=== PATIENT | female | born 1970 | race Caucasian/White ===

== ENCOUNTER 2017-10-20 04:51 | Emergency (ER) | payer MEDICAID ==
[~2017-10-20] VITALS: Ht 152.4 cm; Wt 85.5 kg
[~2017-10-20 04:51] MED LIST: ATOR20TA86 PO; INSLAN SQ; INSU100C3 SQ; SITA50 PO
[2017-10-20] MEDS ORDERED: ATOR40TA28 PO (05:03)
[2017-10-20] MEDS ORDERED: LINA5TAB PO (05:03)
[2017-10-20] MEDS ORDERED: METF500T4 PO (05:03)
[2017-10-20] MEDS ORDERED: INSU100V12 SQ (05:03)
[2017-10-20 05:08] LABS: GLUCOSE,POINT OF CARE 343 MG/DL (70-110)
[2017-10-20 06:30] VITALS: BP 132/85
== END 2017-10-20 06:39 | disposition home or self-care (01) ==
LOC: EMS 04:53
DX: J40 Bronchitis, not specified as acute or chronic (principal); E11.9 Type 2 diabetes mellitus without complications; I10 Essential (primary) hypertension; F17.210 Nicotine dependence, cigarettes, uncomplicated; Z88.1 Allergy status to other antibiotic agents; Z88.8 Allergy status to other drugs, medicaments and biological substances
CPT/HCPCS: 82962; 99283

== ENCOUNTER 2017-11-20 05:51 | Emergency (ER) | payer MEDICAID ==
[~2017-11-20] VITALS: Ht 152.4 cm; Wt 81.8 kg
[~2017-11-20 05:51] MED LIST changes: -ATOR20TA86 PO; +ATOR40TA28 PO; -INSLAN SQ; -INSU100C3 SQ; +INSU100V12 SQ; +LINA5TAB PO; +METF500T4 PO; -SITA50 PO
[2017-11-20 06:02] LABS: GLUCOSE,POINT OF CARE 422 MG/DL (70-110)
[2017-11-20 07:21] LABS: APPEARANCE,URINE CLOUDY (CLEAR); BILIRUBIN,URINE NEGATIVE (NEGATIVE); GLUCOSE, URINE (UA) >=1000 mg/dL (NEGATIVE); KETONES,URINE NEGATIVE (NEGATIVE); LEUKOCYTE ESTERASE ,URINE NEGATIVE (NEGATIVE); NITRATE,URINE NEGATIVE (NEGATIVE); OCCULT BLOOD,URINE LARGE (NEGATIVE); PH,URINE 5.5 (5.0-8.0); PROTEIN,URINE TRACE (NEGATIVE); UROBILINOGEN,URINE 0.2 mg/dL (<=1.0)
[2017-11-20 07:24] LABS: HCG,QUAL RESULT NEGATIVE (NEGATIVE)
[2017-11-20 07:25] LABS: BACTERIA,URINE Few /HPF (None Seen)
[2017-11-20 07:26] LABS: SQUAMOUS EPITHELIAL CELL,UR Moderate /LPF (None Seen)
[2017-11-20 09:53] VITALS: BP 130/72
== END 2017-11-20 10:46 | disposition home or self-care (01) ==
LOC: EMS 05:52
DX: B37.3 Candidiasis of vulva and vagina (principal); E11.9 Type 2 diabetes mellitus without complications; E78.00 Pure hypercholesterolemia, unspecified; F17.210 Nicotine dependence, cigarettes, uncomplicated; Z88.0 Allergy status to penicillin; Z88.8 Allergy status to other drugs, medicaments and biological substances; Z79.4 Long term (current) use of insulin; Z79.899 Other long term (current) drug therapy
CPT/HCPCS: 82962; 87491; 87591; 99284

== ENCOUNTER 2018-07-03 20:17 | Emergency (ER) | payer SELFPAY ==
[~2018-07-03] VITALS: Ht 152.4 cm; Wt 85.0 kg
[~2018-07-03 20:17] MED LIST changes: +METF-960 PO; -METF500T4 PO
[2018-07-03 20:34] LABS: GLUCOSE,POINT OF CARE 382 MG/DL (70-110)
[2018-07-03] MEDS ORDERED: KETOROLAC TROMETHAMINE 60 MG/2 ML VIAL IM ONE (22:15)
[2018-07-03 23:10] VITALS: BP 130/72
== END 2018-07-03 23:35 | disposition home or self-care (01) ==
LOC: EMS 20:19
DX: J06.9 Acute upper respiratory infection, unspecified (principal); J40 Bronchitis, not specified as acute or chronic; E11.9 Type 2 diabetes mellitus without complications; E78.00 Pure hypercholesterolemia, unspecified; F17.210 Nicotine dependence, cigarettes, uncomplicated; Z88.1 Allergy status to other antibiotic agents; Z79.84 Long term (current) use of oral hypoglycemic drugs
CPT/HCPCS: 71046; 82962; 96372; 99284; 99406; J1885